=== PATIENT | female | born 1965 | race Hispanic/Latino ===

== ENCOUNTER 2021-03-30 11:49 | Emergency (ER) | payer SELFPAY ==
[2021-03-30] MEDS ORDERED: HYDROcodone/Acetaminophen 5/325 mg Tablet ONE (12:03)
[2021-03-30] MEDS ORDERED: Ibuprofen 800 MG TAB ONE (12:03)
== END 2021-03-30 12:23 | disposition home or self-care (01) ==
LOC: BURERS 11:49
DX: S60.222A Contusion of left hand, initial encounter (principal); I10 Essential (primary) hypertension; F17.210 Nicotine dependence, cigarettes, uncomplicated; W22.8XXA Striking against or struck by other objects, initial encounter

== ENCOUNTER 2021-08-25 17:12 | Emergency (ER) | payer OTHER, SELFPAY ==
[2021-08-25] MEDS ORDERED: Lidocaine 1% w/Epinephrine 1:100K 20 ML VIAL ONE (17:33)
[2021-08-25] MEDS ORDERED: AMOXicillin 250 MG CAP ONE ×2 (17:33→18:10)
== END 2021-08-25 18:18 | disposition home or self-care (01) ==
LOC: BURERS 17:12
DX: S81.851A Open bite, right lower leg, initial encounter (principal); I10 Essential (primary) hypertension; F17.210 Nicotine dependence, cigarettes, uncomplicated; W54.0XXA Bitten by dog, initial encounter
CPT/HCPCS: 12002

== ENCOUNTER 2021-09-09 12:53 | Emergency (ER) | payer SELFPAY | END 2021-09-09 13:15 | disposition home or self-care (01) | LOC: BURERS 12:53 | DX: S81.811D Laceration without foreign body, right lower leg, subsequent encounter (principal); F17.210 Nicotine dependence, cigarettes, uncomplicated; I10 Essential (primary) hypertension; X58.XXXD Exposure to other specified factors, subsequent encounter ==